=== PATIENT | female | born 1955 | race American Indian/Alaskan Native ===

== ENCOUNTER 2020-05-05 12:36 | Outpatient (CLI) | payer MEDICARE ==
--- NOTE | 2020-05-06 08:45 | Ultrasound Report ---
BILATERAL BREAST ULTRASOUND INDICATION: Fibrocystic mastopathy. COMPARISON: 09/10/2019 FINDINGS: Ultrasound of both breasts was performed. RIGHT BREAST: Located at the 10:00 position, 9 cm from the nipple, is an ill-defined hypoechoic 5 x 6 x 5 mm lesion. This cannot be definitively characterized as cystic and an ultrasound-guided biopsy o f this is recommended. LEFT BREAST: There is a 6 x 6 x 5 mm hypoechoic lesion located in the left breast at the 9:00 positio n, 2 cm from the nipple. This demonstrates irregular borders with questionable eccentric solid compon ent noted on some the images. An ultrasound-guided biopsy of this is recommended. There is also a yogesh ign-appearing 7 mm simple cyst in the left breast at the 4:00 position, 3 cm from the nipple. IMPRESSION: Right breast lesion at the 10:00 position for which ultrasound-guided biopsy is recommended. Left breast lesion at the 9:00 position for which ultrasound-guided biopsy is recommended. BI-RADS Category 4: Suspicious for Malignancy. A "normal" or negative report should not discourage follow up or biopsy of a clinically significant f inding. A written summary of these findings will be mailed to the patient. FURTHER INFORMATION: According to the [employer], yearly mammograms are recommend ed starting at age 40 and continuing as long as a woman is in good health. Breast MRI is recommended for women with an approximately 20-25% or greater lifetime risk of breast cancer, including women wi th a strong family history of breast or ovarian cancer and women who have been treated for Hodgkin's disease. Signer Name: Olvin Padron MD Signed: 05/06/2020 8:41 AM Workstation Name: [id number]
== END 2020-05-05 12:37 | disposition home or self-care (01) ==
LOC: SPVWC 12:36
PROVIDERS: ATTEND Surgery
DX: N64.89 Other specified disorders of breast (principal); N60.12 Diffuse cystic mastopathy of left breast; N60.11 Diffuse cystic mastopathy of right breast

== ENCOUNTER 2020-09-02 13:15 | Outpatient (CLI) | payer MEDICARE ==
--- NOTE | 2020-09-02 15:30 | Mammography Report ---
DIGITAL DIAGNOSTIC MAMMOGRAM WITH CAD CONVENTIONAL, 09/02/2020 CLINICAL INFORMATION / INDICATION: Post ultrasound-guided biopsy TECHNIQUE: Digital right mammographic imaging was performed. This examination was interpreted with the benefit of Computer-aided Detection analysis. COMPARISON: Screening mammogram 09/10/2019 FINDINGS: Breast Density: The breasts are heterogeneously dense, which may obscure small masses. Biopsy clip and changes are seen in the far posterior upper outer right breast correlating with the s ite of the sonographic abnormality. IMPRESSION: Appropriate clip placement Follow up recommendation: Per biopsy results Post biopsy imaging. A "normal" or negative report should not discourage follow up or biopsy of a clinically significant f inding. A written summary of these findings will be mailed to the patient. The patient will be entered into a mammography reporting system which will generate a reminder letter for the patient's next appointmen t at the appropriate interval. According to the [employer], yearly mammograms are recommended starting at age 40 and continuing as long as a woman is in good health. Breast MRI is recommended for women with an sabina roximately 20-25% or greater lifetime risk of breast cancer, including women with a strong family his tory of breast or ovarian cancer and women who have been treated for Hodgkin's disease. Signer Name: Bola Winn MD Signed: 09/02/2020 3:25 PM Workstation Name: [id number]
--- NOTE | 2020-09-02 15:42 | Ultrasound Report ---
ULTRASOUND-GUIDED RIGHT BREAST BIOPSY INDICATION: Irregular right breast nodule COMPARISON: Right breast ultrasound 05/05/2020 CONSENT: Procedure was discussed at length in advance with the patient. Possible risks and benefits w ere discussed including the possibility of bleeding. Postbiopsy care was discussed. Opportunity for q uestions was provided. Patient is not on anticoagulant therapy and reports no pertinent allergies. PROCEDURE: Timeout was performed. The irregular nodule in the far upper outer right breast at 10:00, 9 cm from the nipple, was targeted sonographically; this nodule has increased from 6 mm to 7 mm since April. Using aseptic technique and under local anesthesia, with real-time sonographic guid ance, the area of interest was biopsied. Multiple specimens were obtained with a 14-gauge Bard biopsy device and sent to pathology for analysis. A metallic clip was placed at the end of the procedure. S ite was secured and the patient was sent for post biopsy mammogram. Patient tolerated the procedure w ell and left the department in good condition. IMPRESSION: Successful ultrasound-guided right breast biopsy Signer Name: Bola Winn MD Signed: 09/02/2020 3:38 PM Workstation Name: [id number]
== END 2020-09-02 13:16 | disposition home or self-care (01) ==
LOC: SPVWC 13:15
PROVIDERS: ATTEND Surgery
DX: N60.01 Solitary cyst of right breast (principal); R92.8 Other abnormal and inconclusive findings on diagnostic imaging of breast
CPT/HCPCS: 88305; 88341; 88342

== ENCOUNTER 2020-09-09 13:18 | Outpatient (CLI) | payer MEDICARE ==
--- NOTE | 2020-09-09 15:08 | Mammography Report ---
LEFT DIAGNOSTIC MAMMOGRAM INDICATION: Left breast lesion at the 9:00 position. COMPARISON: 05/05/2020, 09/10/2019. FINDINGS: Left breast CC and LM projection mammograms were obtained. These document a U-shaped biopsy marker within the left breast at the 9:00 position in the expected location. IMPRESSION: Left breast mammograms document a U-shaped biopsy marker within the left breast at 9:00 position (sit e of recent ultrasound-guided biopsy). BI-RADS Category 4: Suspicious for Malignancy. Signer Name: Olvin Padron MD Signed: 09/09/2020 3:04 PM Workstation Name: [id number]
--- NOTE | 2020-09-09 15:11 | Ultrasound Report ---
ULTRASOUND-GUIDED CORE NEEDLE BIOPSY LEFT BREAST WITH CLIP PLACEMENT INDICATION: 05/05/2020 FINDINGS: Informed consent was obtained. The lesion within within the left breast at the 9:00 position, 2 cm fr om the nipple, was identified with ultrasound. The overlying skin was cleansed with chloro prep and l ocal anesthesia was obtained with a 1% lidocaine solution. Under ultrasound guidance a 14-gauge sprin g loaded core biopsy needle was advanced to the lesion. A total of 5 core samples were obtained. A U- shaped biopsy marker was placed to torie the site of the biopsy. Specimen samples were placed in forma logan and sent to pathology for analysis. Patient tolerated the procedure well and no immediate complications were identified. A post procedure mammogram demonstrates accurate placement of the biopsy marker. IMPRESSION: Technically successful ultrasound-guided core biopsy of left breast lesion at the 9:00 position with accurate placement of a U-shaped biopsy marker. An addendum will be added to this report once pathology results are available. Signer Name: Olvin Padron MD Signed: 09/09/2020 3:06 PM Workstation Name: [id number]
== END 2020-09-09 13:19 | disposition home or self-care (01) ==
LOC: SPVWC 13:18
PROVIDERS: ATTEND Surgery
DX: N63.22 Unspecified lump in the left breast, upper inner quadrant (principal); R92.8 Other abnormal and inconclusive findings on diagnostic imaging of breast; N64.89 Other specified disorders of breast
CPT/HCPCS: 88305

== ENCOUNTER 2020-09-30 09:36 | Outpatient (CLI) | payer MEDICARE ==
--- NOTE | 2020-09-30 11:41 | Magnetic Resonance Report ---
Bilateral breast MR without and with contrast. History: Recently diagnosed right breast malignancy, assess extent of disease. Patient also with hist ory of benign left breast biopsy which was felt to be discordant Comparison: 05/05/2020, 09/02/2020, 09/09/2020. Technique: Multiplanar multisequence MR images of the breast were obtained before and after the intra venous administration of contrast agent. Post processing analysis and review was performed on a [employer] computer workstation. Findings: Breast composition is heterogeneously dense. There is minimal background parenchymal enhancement with in both breasts. RIGHT BREAST: Located in the right breast at the 10:00 posterior position is a 12 x 10 x 9 mm enhanci ng mass. This was biopsied and was found to represent invasive carcinoma A biopsy marker is associa bridget with this mass. No evidence of skin or pectoralis muscle involvement. No additional suspicious f indings within the right breast. LEFT BREAST: No suspicious enhancing mass, dominant focus or other abnormal enhancement in the left b reast. A biopsy marker is noted at the 9:00 position at anterior depth. This represents the site of a benign biopsy, however the results were felt to be discordant and surgical excision was recommende d. No abnormal axillary or internal mammary lymph nodes. Impression: Known biopsy proven malignancy in the right breast at the 10:00 posterior position measures up to 12 mm. No findings to suggest further extent of disease or additional findings within either breast. A biopsy marker is noted in the left breast at the 9:00 position at anterior depth. This represents the site of a benign biopsy, however the results were felt to be discordant and surgical excision was recommended. BIRADS 6: Known biopsy proven malignancy. A normal MRI does not exclude the presence of some forms of breast malignancy as literature reports s uggest that some forms of ductal carcinoma in situ or lobular carcinoma, particularly, may not be det ected on MRI. The sensitivity and specificity of MRI for cancers under 5 mm may be reduced. MRI does not replace the recommendation for annual conventional mammographic evaluation and should be used as an adjunct to mammography and physical examination as necessary. Signer Name: Olvin Padron MD Signed: 09/30/2020 11:37 AM Workstation Name: [id number]
== END 2020-09-30 09:37 | disposition home or self-care (01) ==
LOC: SPVIMAG 09:36
PROVIDERS: ATTEND Surgery
DX: C50.411 Malignant neoplasm of upper-outer quadrant of right female breast (principal); N63.11 Unspecified lump in the right breast, upper outer quadrant
CPT/HCPCS: A9577; C8908; 77049

== ENCOUNTER 2020-12-23 08:05 | Day surgery (SDC) | payer MEDICARE ==
[~2020-12-23 08:05] MED LIST: ceFAZolin/Water 2 GM/20 ML 2 GM/20 ML SYRINGE IV NR
[2020-12-23] MEDS ORDERED: LIDOCAINE (1%) 10 MG/1 ML VIAL 20 ML MDV ONE (08:51)
[2020-12-23] MEDS ORDERED: HYDROmorphone 1 MG/1 ML INJ IV PRN (10:04)
[2020-12-23] MEDS ORDERED: fentaNYL 100 MCG/2 ML INJ IV NR (10:04)
[2020-12-23] MEDS ORDERED: MAGNESIUM OXIDE 400 MG TAB PO NR (10:04)
[2020-12-23] MEDS ORDERED: ONDANSETRON 4 MG/2 ML INJ IV PRN (10:04)
[2020-12-23] MEDS ORDERED: ACETAMINOPHEN 325 MG TAB PO NR (10:04)
--- NOTE | 2020-12-23 10:04 | Anesthesia Day of Surgery ---
Anesthesia Day of Surgery - Day of Surgery Patient Examined: Yes Patient H&P Reviewed: Yes Patient is NPO: Yes
[2020-12-23] MEDS: MIDAZOLAM 2 MG/2 ML INJ IV NR ×2 (10:30→11:35)
[2020-12-23] MEDS ORDERED: LACTATED RINGERS 1,000 ML IV SCH (10:30)
[2020-12-23] MEDS ORDERED: CELECOXIB 200 MG CAP PO NR (11:00)
[2020-12-23] MEDS ORDERED: BUPIVACAINE/PF (0.25%) 2.5 MG/ML 30 ML VIAL INFILTRATI ONE (11:28)
[2020-12-23] MEDS ORDERED: BUPIVACAINE/PF (0.5%) 5 MG/1 ML 10 ML VIAL INFILTRATI ONE (11:29)
--- NOTE | 2020-12-23 11:53 | Mammography Report ---
MAMMOGRAPHIC GUIDED LEFT BREAST NEEDLE LOCALIZATION, 12/23/2020 CLINICAL INFORMATION / INDICATION: LT BREAST MASS/ LOC. COMPARISON: 09/09/2020 PROCEDURE: Risks, benefits and indications to the procedure were discussed with the patient. The patient agreed to proceed with both verbal and written consent. A timeout procedure was performed with 2 patient pierre ntifiers. The breast was prepped with betadine in the usual sterile fashion. Approximately 5 cc of Lidocaine 1% was used for local anesthesia. Under direct digital mammographic guidance, a localization wire was p laced in satisfactory position with distal tip traversing the targeted lesion. Post-biopsy mammogram confirms satisfactory positioning of the localization wire. The wire was secured to the skin with a s terile dressing. The patient tolerated procedure without difficulty. No complications were encountered. IMPRESSION: 1. Satisfactory mammographic guided wire localization of the left breast. Signer Name: James Vizcarra Jr, MD Signed: 12/23/2020 11:49 AM Workstation Name: [id number]
--- NOTE | 2020-12-23 11:54 | Mammography Report ---
MAMMOGRAPHIC GUIDED RIGHT BREAST NEEDLE LOCALIZATION, 12/23/2020 CLINICAL INFORMATION / INDICATION: RT BREAST MASS/ NEEDLE LOC. COMPARISON: 09/02/2020 PROCEDURE: Risks, benefits and indications to the procedure were discussed with the patient. The patient agreed to proceed with both verbal and written consent. A timeout procedure was performed with 2 patient pierre ntifiers. The breast was prepped with betadine in the usual sterile fashion. Approximately 5 cc of Lidocaine 1% was used for local anesthesia. Under direct digital mammographic guidance, a localization wire was p laced in satisfactory position with distal tip traversing the targeted lesion. Post-biopsy mammogram confirms satisfactory positioning of the localization wire. The wire was secured to the skin with a s terile dressing. The patient tolerated procedure without difficulty. No complications were encountered. IMPRESSION: 1. Satisfactory mammographic guided wire localization of the right breast. Signer Name: James Vizcarra Jr, MD Signed: 12/23/2020 11:49 AM Workstation Name: [id number]
[2020-12-23] MEDS ORDERED: propofoL 200 MG/20 ML VIAL IV ONE (13:03)
[2020-12-23] MEDS ORDERED: LIDOCAINE MPF (2%) 20 MG/1 ML VIAL 5 ML ONE (13:03)
[2020-12-23] MEDS ORDERED: HYDROmorphone 1 MG/1 ML INJ ONE (13:03)
[2020-12-23] MEDS ORDERED: ROCURONIUM 50 MG/5 ML INJ IV ONE (13:03)
[2020-12-23] MEDS ORDERED: ONDANSETRON 4 MG/2 ML INJ ONE ×2 (13:03→17:47)
--- NOTE | 2020-12-23 13:21 | Short Stay Summary ---
Short Stay Documentation Date of service: 12/23/20 - History H&P: obtained from office - Allergies and Medications Current Medications: Allergies No Known Allergies Allergy (Unverified 12/18/20 15:46) Home Medications Medication Instructions Recorded Confirmed Last Taken Type Aspirin [Adult Aspirin] 81 mg PO DAILY 10/30/20 12/18/20 Unknown History Azelastine 0.1% (Nf) [Astelin (Nf)] 1 spray IH BID 10/30/20 12/18/20 Unknown History Biotin [Biotin 1] 1 mg PO DAILY 10/30/20 12/18/20 Unknown History Cholecalciferol (Vitamin D3) 25 mcg PO DAILY 10/30/20 12/18/20 Unknown History [Vitamin D3] DULoxetine [Cymbalta] 30 mg PO BID 10/30/20 12/18/20 Unknown History Famotidine [Acid-Pep] 20 mg PO BID 10/30/20 12/18/20 Unknown History Magnesium Chloride [Slow-Mag] 64 mg PO BID 10/30/20 12/18/20 Unknown History Metoprolol [Lopressor TAB] 50 mg PO BID 10/30/20 12/18/20 Unknown History Potassium Chloride [K-Dur] 20 meq PO QDAY 10/30/20 12/18/20 Unknown History Simvastatin 40 mg PO HS 10/30/20 12/18/20 Unknown History Tetracycline HCl 500 mg PO TID 10/30/20 12/18/20 Unknown History Ubidecarenone [Coq-10] 100 mg PO DAILY 10/30/20 12/18/20 Unknown History Vitamin B Complex [Super B-50 1 each PO DAILY 10/30/20 12/18/20 Unknown History Complex] Zolpidem [Ambien] 5 mg PO QHS PRN 10/30/20 12/18/20 Unknown History amLODIPine [Norvasc] 5 mg PO DAILY 10/30/20 12/18/20 Unknown History buPROPion HCL [Bupropion HCl Sr] 150 mg PO DAILY 10/30/20 12/18/20 Unknown History diazePAM TAB [Valium] 2 mg PO TID PRN 10/30/20 12/18/20 Unknown History methocarbamoL [Methocarbamol] 750 mg PO TID PRN 10/30/20 12/18/20 Unknown History Active Medications Celecoxib (Celecoxib 200 Mg Cap) 200 mg PO PREOP NR Stop: 12/23/20 16:00 Hydromorphone HCl (Hydromorphone 1 Mg/1 Ml Inj) 0.25 mg IV Q10MIN PRN PRN Reason: Pain, Moderate (4-6) Stop: 12/23/20 23:00 Hydromorphone HCl (Hydromorphone 1 Mg/1 Ml Inj) 0.5 mg IV Q10MIN PRN PRN Reason: Pain , Severe (7-10) Stop: 12/23/20 23:00 Cefazolin Sodium (Ancef/Sterile Water 2 Gm/20 Ml) 2 gm in 20 mls @ 80 mls/hr IV PREOP NR; Protocol Stop: 12/23/20 21:00 Lactated Ringer's (Lactated Ringers) 1,000 mls @ 125 mls/hr IV DIRECT JANETTE Midazolam HCl (Midazolam 2 Mg/2 Ml Inj) 2 mg IV PREOP NR Stop: 12/23/20 23:59 Ondansetron HCl (Ondansetron 4 Mg/2 Ml Inj) 4 mg IV ONCE PRN PRN Reason: Nausea And Vomiting Stop: 12/23/20 20:00 - Brief post op/procedure progress note Date of procedure: 12/23/20 Pre-op diagnosis: Right breast cancer UOQ and left breast mass Post-op diagnosis: same Procedure: Right needle localization partial mastectomy with SLNB and left breast needle localization excisional biopsy of breast mass Anesthesia: GETA Findings: Right partial mastectomy with clip and wire present; left breast excisional biopsy with clip and wire present Surgeon: OPAL KNUTSON Estimated blood loss: other (50 cc) Pathology: list (right partial mastectomy with slns; left breast mass) Specimen disposition: to lab Condition: stable - Disposition Condition at discharge: Good Disposition: DC-01 TO HOME OR SELFCARE Short Stay Discharge Plan Activity: other (no heavy lifting) Diet: regular Wound: keep clean and dry (dressing instructions and showering per plastic surgery) Follow up with: OPAL KNUTSON MD [Staff Physician] - 7 Days
[2020-12-23] MEDS ORDERED: BACITRACIN 50,000 UNIT VIAL ONE (13:29)
[2020-12-23] MEDS ORDERED: ceFAZolin 1 GM VIAL ONE (13:29)
[2020-12-23] MEDS ORDERED: GENTAMICIN 40 MG/ML VIAL 2 ML ONE (13:29)
[2020-12-23] MEDS ORDERED: LIDOCAINE 1%/EPINEPHRINE 1:100,000 VIAL (20 ML) INFILTRATI ONE ×3 (13:30→17:00)
[2020-12-23] MEDS ORDERED: SODIUM CHLORIDE P/F VIAL 10 ML 20 ML ONE (13:30)
--- NOTE | 2020-12-23 13:43 | Operative Report ---
Operative Report Operative Report: Operative Report: December 23, 2020 Preoperative diagnosis: Right breast cancer of the upper outer quadrant and left breast mass Postoperative diagnosis: Same Procedure: Right needle localization partial mastectomy of the upper outer quadrant with SLNB and left breast mass needle localization excisional biopsy Surgeon: Nehal Ruiz MD Sign Poster: Todd José MD Anesthesia: General Findings: Right wire and clip present within radiograph specimen; x1 SLN; left breast wire and clip present Complications: None EBL: Less than 50 cc Disposition: PACU in good condition Indications for operative procedure: This is a 65 year old lady with newly diagnosed right breast cancer of the upper outer quadrant, Stage I [id number] Her- 2 positive (10:00 position 9 cm FN of 1 cm) and left breast mass (9:00 position 2 cm FN of 6 mm). Recommendations are to proceed with breast conservation for right partial mastectomy and left breast needle localization excisional biopsy given discordant pathology findings per radiologist-findings of small fragments of benign breast tissue, discordant given mass present. Radiologist to place wire at area of known cancer of IDCA and wire localization of discordant pathology of left breast mass. She understands the role of adjuvant radiation therapy and the role of chemotherapy-she has met with medical oncology and is currently declining chemotherapy, chemotherapy indicated given Her-2 positive breast cancer. She wished to proceed with concurrent bilateral reduction mammoplasty with plastic surgery. She wished to proceed with the above procedure. Procedure in detail: The patient was taken to radiology for wire placement for localization of known area of cancer right breast and left breast mass- discordant pathology. Anesthesia placed bilateral pectoral block. Patient was then taken to the operating room. Gen. anesthesia was administered. The right nipple was injected with radioisotope. Bilateral breast and axilla were prepped and draped in the normal sterile operative fashion. Timeout was performed. Attention was then taken towards the left breast. An lower inner quadrant breast incision was made with a 15 blade knife and dissection taken down to subcutaneous tissues. First began raising of the lateral flap with removal of the wire from the skin with dissection taken down posteriorly past the wire, followed by raising of the inferior flap, medial flap and lateral flap with all flaps taken down posteriorly past the wire and area of concern. The breast area of concern was appropriately removed posteriorly with the aid of the Bovie cautery. The wire was not encountered. Specimen was marked and then sent to pathology and radiology; radiograph specimen with wire and clip present. A flat 2x2 biozorb was the sututed into place at area of incision using interrupted 3-0 PDS to torie the area of excision given patient was undergoing immediate reduction mammoplasty. Breast cavity was irrigated and hemostasis was obtained. Attention was then taken towards the right breast. Gamma probe was inserted into the axilla. The area of hot spot was identified. A right axillary incision was made with a 15 blade knife with dissection taken down to the subcutaneous tissues. The axillary fascia was opened with the Bovie cautery. One SLN was identified. No additional counts were present. Lymph node was sent to pathology for permanent processing. Hemostasis was obtained in the right axillary cavity. Axillary cavity was appropriately irrigated and suctioned. Hemostasis was noted. Axillary fascia was approximated and closed using interrupted 3-0 Vicryl. Attention was then taken towards the right breast. Ultrasound was used as well to identify the area of known breast malignancy; wire was noted as well. A lower outer quadrant breast incision was made with (at location of reduction mammoplasty incision) a 15 blade knife and dissection taken down to subcutaneous tissues. First began raising of the superior flap with removal of the wire from the skin with dissection taken past the area of known malignancy and then down to the pectoralis muscle, followed by raising of the inferior flap, medial flap and lateral flap with all flaps taken down to the pectoralis muscle and past the area of known malignancy. The breast area of concern was appropriately removed posteriorly from the pectoralis muscle with the aid of the Bovie cautery. The wire was not encountered. Specimen was marked and then sent to pathology and ra diology; radiograph specimen with wire, mass and clip present. Ultrasound used as well with findings of breast mass present with good appearing margins surrounding the mass. No additional suspiouis sonographic were present. A flat 2x3 biozorb was the sututed into place at areaa of lumpectomy using interrupted 3-0 PDS to torie the area of lumpectomy given patient was undergoing immediate reduction mammoplasty. Breast cavity was irrigated and hemostasis was obtained. The patient tolerated surgery very well and plastic surgery then proceeded with bilateral reduction mammoplasty.
[2020-12-23] MEDS ORDERED: NEOMY 40 MG/POLYMYXIN B 200,000 UNITS/ML (GU) AMPULE IR ONE ×2 (14:26→14:50)
[2020-12-23] MEDS ORDERED: ePHEDrine SULFATE 50 MG/1 ML INJ ONE (14:28)
[2020-12-23] MEDS ORDERED: LACTATED RINGERS 1,000 ML ONE ×2 (14:46→17:47)
--- NOTE | 2020-12-23 16:21 | Mammography Report ---
RIGHT BREAST SPECIMEN RADIOGRAPH, 12/23/2020 INDICATION: Right breast target lesion: mass. COMPARISON: Needle localization films performed earlier today FINDINGS: The previously localized target lesion is present in its entirety in the submitted specimen. The localization wire is present. IMPRESSION: 1. Radiographic evidence of satisfactory excision of the right breast target lesion. Signer Name: James Vizcarra Jr, MD Signed: 12/23/2020 4:16 PM Workstation Name: [id number]
[2020-12-23] MEDS ORDERED: NEOSTIGMINE 10MG/10 ML INJ MDV ONE (17:47)
[2020-12-23] MEDS ORDERED: GLYCOPYRROLATE 0.4 MG/2 ML INJ ONE (17:47)
[2020-12-23] MEDS: HYDROmorphone 1 MG/1 ML INJ IV PRN ×3 (18:16→18:36)
--- NOTE | 2020-12-23 19:14 | Post Anesthesia Evaluation ---
- Post Anesthesia Evaluation Patient Participated: Yes Airway Patent: Yes Stable Respiratory Function: Yes Nausea/Vomiting: No Temp > 96.8F: Yes Pain Manageable: Yes Adequeate Hydration: Yes Anesthesia Complications: No Block Receding Appropriately: Yes Patient on Ventilator: No
[2020-12-23 20:35] VITALS: BP 146/66
--- NOTE | 2020-12-24 15:36 | Mammography Report ---
RIGHT BREAST SPECIMEN RADIOGRAPH, 12/24/2020 INDICATION: Right breast target lesion: Right breast mass. COMPARISON: Needle localization performed earlier the same day. FINDINGS: The previously localized target lesion is present in its entirety in the submitted specimen. The localization wire is present. IMPRESSION: 1. Radiographic evidence of satisfactory excision of the right breast target lesion. Signer Name: James Vizcarra Jr, MD Signed: 12/24/2020 3:31 PM Workstation Name: [id number]
== END 2020-12-23 20:20 | disposition home or self-care (01) ==
LOC: OR 08:05
PROVIDERS: ATTEND Surgery
DX: C50.411 Malignant neoplasm of upper-outer quadrant of right female breast (principal); N63.20 Unspecified lump in the left breast, unspecified quadrant; I25.10 Atherosclerotic heart disease of native coronary artery without angina pectoris; E78.00 Pure hypercholesterolemia, unspecified; I10 Essential (primary) hypertension; G47.30 Sleep apnea, unspecified; K21.9 Gastro-esophageal reflux disease without esophagitis; M79.7 Fibromyalgia; Z20.822 Contact with and (suspected) exposure to COVID-19; Z79.899 Other long term (current) drug therapy; Z79.82 Long term (current) use of aspirin; Z95.5 Presence of coronary angioplasty implant and graft; Z90.49 Acquired absence of other specified parts of digestive tract; Z90.710 Acquired absence of both cervix and uterus; Z90.721 Acquired absence of ovaries, unilateral; Z98.891 History of uterine scar from previous surgery
CPT/HCPCS: 19125; 19281; 19282; 19301; 38525; 38792; 76098; 78800; 88307; 88341; 88342; 88368; A4648; A9541; J0690; J1170; J1580; J2250; J2405; J2704; J2710; J3010; J7120; U0003; 64450; 88333